=== PATIENT | male | born 1955 | race Caucasian/White ===

== ENCOUNTER 2019-04-24 06:47 | Inpatient (IN) ==
--- NOTE | 2019-04-10 10:05 | EKG Report ---
Test Performed on : 04/10/2019 09:46:11 AM Test Reason : PAT Blood Pressure : / mmHG Vent. Rate : 069 BPM Atrial Rate : 069 BPM P-R Int : 152 ms QRS Dur : 084 ms QT Int : 406 ms P-R-T Axes : 063 023 056 degrees QTc Int : 435 ms Normal sinus rhythm. Possible Left atrial enlargement Septal infarct , age undetermined Abnormal ECG When compared with ECG of 19-OCT-2017 21:32, Septal infarct is now present T wave amplitude has increased in Anterior leads Confirmed by Addy ROCHA, Jayden Mckinney ([id number]) on 04/11/2019 7:42:47 PM
[2019-04-10 10:40] LABS: HEMATOCRIT 38.9 % (42.0-52.0); HEMOGLOBIN 12.6 g/dL (14.0-18.0); MCH 30.1 PG (27-31); MCHC 32.4 g/dL (33-37); MCV 92.8 FL (81-99); MPV 9.4 FL (7.4-10.4); RBC 4.19 XMIL (4.7-6.1); RDW 12.5 % (11.5-14.5); WBC 7.56 X1000 (4.8-10.8)
[2019-04-10 10:53] LABS: AGAP 13; BUN 13 mg/dL (8-22); CALCIUM 9.5 mg/dL (8.8-10.2); CHLORIDE 97 mmol/L (98-107); COSMO 279; CREATININE 0.9 mg/dL (0.7-1.2); ESTIMATED GFR > 60; GLUCOSE 221 mg/dL (70-104); POTASSIUM 5.1 mmol/L (3.5-5.1); SODIUM 136 mmol/L (136-145); TCO2 26 mmol/L (25-35)
[2019-04-24] MEDS ORDERED: VANCOMYCIN 1 GM/NS 1 GM/250 ML IVPB IV ONE (07:15)
[2019-04-24] MEDS ORDERED: LR 1,000 ML ONE (07:17)
[2019-04-24] MEDS ORDERED: ROBINUL ONE ×2 (07:52→10:22)
[2019-04-24] MEDS ORDERED: XYLOCAINE-MPF 2% ONE ×2 (07:52→11:45)
[2019-04-24] MEDS ORDERED: ZOFRAN ONE (07:52)
[2019-04-24] MEDS ORDERED: DIPRIVAN 1% ONE (07:52)
[2019-04-24] MEDS ORDERED: DECADRON ONE (07:52)
[2019-04-24] MEDS ORDERED: QUELICIN (DOSE) ONE (07:56)
[2019-04-24] MEDS ORDERED: REGLAN ONE (08:34)
[2019-04-24] MEDS ORDERED: PEPCID ONE (08:34)
[2019-04-24] MEDS ORDERED: SENSORCAINE 0.5%-EPI 1:200,000 ONE (08:50)
[2019-04-24] MEDS ORDERED: HEPARIN ONE ×2 (08:51→08:52)
[2019-04-24] MEDS ORDERED: KEFZOL ONE (08:51)
[2019-04-24] MEDS ORDERED: NS 2,000 ML ONE (08:52)
[2019-04-24] MEDS ORDERED: VERSED ONE (08:53)
[2019-04-24] MEDS ORDERED: FENTANYL ONE (08:54)
[2019-04-24] MEDS ORDERED: NS 250 ML ONE (09:01)
[2019-04-24] MEDS ORDERED: SODIUM CHLORIDE 0.9% 10 ML ONE ×2 (09:23→09:34)
[2019-04-24] MEDS ORDERED: ZEMURON ONE (09:27)
[2019-04-24] MEDS ORDERED: HEPARIN (DOSE) ONE (09:29)
[2019-04-24] MEDS ORDERED: EPHEDRINE ONE (09:35)
[2019-04-24 09:59] LABS: URINE SOURCE CATH
[2019-04-24 10:03] LABS: BILIRUBIN URINE NEGATIVE (NEGATIVE); BLOOD URINE NEGATIVE (NEGATIVE); COLOR YELLOW; GLUCOSE URINE >1000 mg/dL (NEGATIVE); KETONE URINE TRACE mg/dL (NEGATIVE); LEUKOCYTES URINE NEGATIVE (NEGATIVE); NITRITE URINE NEGATIVE (NEGATIVE); PH URINE 6.5; PROTEIN URINE TRACE mg/dL (NEGATIVE); SP GRAVITY URINE 1.015; TURBIDITY URINE CLEAR (CLEAR); UROBILINOGEN URINE NORMAL (NORMAL)
[2019-04-24 10:06] LABS: UR EPITHELIAL CELLS <10 /HPF (<10); URINE BACTERIA NEGATIVE /HPF; URINE RBC <10 /HPF (<10); URINE WBC <10 /HPF (<10)
[2019-04-24] MEDS ORDERED: NEOSTIGMINE ONE (10:22)
[2019-04-24] MEDS ORDERED: NS 1,000 ML ONE (11:24)
[2019-04-24] MEDS ORDERED: NORCO-10 ONE (11:24)
[2019-04-24] MEDS ORDERED: HUMULIN N SUBQ SCH (12:01)
[2019-04-24] MEDS ORDERED: NS 1,000 ML IV SCH (12:01)
[2019-04-24] MEDS ORDERED: ZOFRAN IV PRN (12:01)
[2019-04-24] MEDS ORDERED: DILAUDID IV PRN (12:01)
[2019-04-24] MEDS ORDERED: FLU VACCINE IM ONE (12:24)
--- NOTE | 2019-04-24 12:26 | OPERATIVE NOTE ---
PROCEDURE DATE: 04/24/2019 PROCEDURE PERFORMED: 1. Left common femoral endarterectomy with patch angioplasty. 2. Open left leg arteriogram. SURGEON: Gamaliel Manriquez MD. ART GLASS SETTER: Jaye. PREOPERATIVE DIAGNOSIS: Left leg claudication. 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 DESCRIPTION OF PROCEDURE: Satisfactory general endotracheal anesthesia was achieved. The left leg was prepped and draped in a sterile fashion. We made a vertical incision, carried our incision through the subcutaneous tissue down to the left common femoral artery. We incised the inguinal ligament somewhat to get to distal external iliac where we could clamp it. There was significant plaque in the common femoral with a thrill indicative of significant stenosis or occlusion. We dissected out the superficial femoral surrounded with a vessel loop. The deep femoral as well as other branches off the common femoral and surrounded them with vessel loops or 2-0 silks. 7000 units of heparin were given. After that had circulated for over 7 minutes, we then clamped off the external iliac, the profunda, and the superficial femoral. We then incised the common femoral and extended it with the Beauchamp scissors through the significant calcific plaque in the common femoral. We then raised the plaque out of the artery and had to transected it with a Marvin scissors proximally and then used a [place] tool to dissect the intima and overlying plaque down to the bifurcation of the common femoral. That is where we transected the plaque. It was rather shallow at that point but we did tack the intima distally with 6-0 Prolene simple stitches x3. We removed all leaflets we could identify. We then obtained a 6 x 1 bovine patch which we had been soaking. We then sutured it to the femoral artery with a 6-0 Prolene running stitch. Upon completion, we allowed flow into the femoral artery. We had to add additional 6-0 Prolene stitches until satisfactory hemostasis was present along the course of the endarterectomy. We did have to place some Gel-Foam or Avitene patches to help achieve complete hemostasis along the suture line. We then used a needle to access the superficial femoral artery, passed a wire and then a 7-Swedish sheath. We shot an arteriogram of the left SFA, popliteal, tibial all the way to the ankle and no significant stenoses were present to necessitate any endovascular intervention. I placed a 5-0 Prolene [id number]-xo-txzim stitch at the puncture site and removed our sheath and closed the hole in the superficial femoral artery. We irrigated out the wound. Hemostasis was satisfactory. We closed the inguinal ligament with a 2-0 Polysorb gijiwv-er-tqmda stitch. We then closed the subcutaneous tissue in 2 layers of 2-0 Polysorb running and then closed the skin with a 4-0 Polysorb subcuticular stitch. Sterile OpSite dressing was applied. He tolerated it well and was sent to the recovery room in satisfactory condition. Estimated blood loss was 100 mL. cc: Gamaliel Manriquez MD
[2019-04-24] MEDS ORDERED: PNEUMOVAX 23 IM ONE (12:45)
[2019-04-24] MEDS: NEURONTIN PO SCH ×2 (14:34→20:23)
[2019-04-24] MEDS: NORCO-10 PO PRN ×3 (14:42→22:16)
[2019-04-24] MEDS: NICODERM PATCH TD SCH (16:31)
--- NOTE | 2019-04-24 20:02 | GENERAL SURGERY PROGRESS NOTE ---
DATE: 04/24/2019 SUBJECTIVE: He is postoperative left femoral endarterectomy. OBJECTIVE: There is no evidence of bleeding. His bandage is dry. He has a palpable posterior tibial pulse. ASSESSMENT AND PLAN: We will check his labs in the morning and discharge him tomorrow if all is well. cc: Gamaliel Manriquez MD
[2019-04-24] MEDS: PERIDEX MT SCH (20:23)
[2019-04-24] MEDS: VANCOMYCIN 1 GM/NS 1 GM/250 ML IVPB IV SCH (20:23)
[2019-04-24] MEDS: COREG PO SCH (20:23)
[2019-04-25] MEDS: NORCO-10 PO PRN ×3 (03:22→12:52)
[2019-04-25 06:21] LABS: BASO# 0.05 X1000 (0.0-0.2); BASO% 0.6 % (0.0-0.8); EOS# 0.35 X1000 (0.0-0.7); EOS% 4.3 % (0.0-10.0); HEMATOCRIT 33.4 % (42.0-52.0); HEMOGLOBIN 10.8 g/dL (14.0-18.0); LYMPH# 1.62 X1000 (1.2-3.4); LYMPH% 19.9 % (20.5-51.1); MCH 30.6 PG (27-31); MCHC 32.3 g/dL (33-37); MCV 94.6 FL (81-99); MONO# 0.73 X1000 (0.11-0.59); MONO% 8.9 % (1.7-9.3); MPV 8.8 FL (7.4-10.4); NEUT# 5.41 X1000 (1.4-6.5); NEUT% 66.3 % (42.2-75.2); PLT 385 X1000 (130-400); RBC 3.53 XMIL (4.7-6.1); RDW 12.8 % (11.5-14.5); WBC 8.16 X1000 (4.8-10.8)
[2019-04-25 06:43] LABS: AGAP 11; BUN 10 mg/dL (8-22); CALCIUM 8.2 mg/dL (8.8-10.2); CHLORIDE 98 mmol/L (98-107); COSMO 275; CREATININE 0.9 mg/dL (0.7-1.2); ESTIMATED GFR > 60; GLUCOSE 232 mg/dL (70-104); POTASSIUM 4.2 mmol/L (3.5-5.1); SODIUM 134 mmol/L (136-145); TCO2 25 mmol/L (25-35)
[2019-04-25] MEDS ORDERED: SYNTHROID PO SCH (07:00)
[2019-04-25] MEDS: VANCOMYCIN 1 GM/NS 1 GM/250 ML IVPB IV SCH (08:24)
[2019-04-25] MEDS: COREG PO SCH (08:25)
[2019-04-25] MEDS: PERIDEX MT SCH (08:25)
[2019-04-25] MEDS: NICODERM PATCH TD SCH (08:25)
[2019-04-25] MEDS: NEURONTIN PO SCH (08:25)
[2019-04-25] MEDS ORDERED: PROZAC PO SCH (09:00)
[2019-04-25] MEDS ORDERED: PRINIVIL PO SCH (09:00)
[2019-04-25 11:48] VITALS: BP 172/66
--- NOTE | 2019-04-25 20:11 | GENERAL SURGERY PROGRESS NOTE ---
DATE: 04/25/2019 SUBJECTIVE/OBJECTIVE: Mr. Rothman is doing well. His bandage is dry. He has a palpable posterior tibial pulse. His hemoglobin is 10.8, hematocrit 33. PLAN: Discharge. We will write him something for pain. We discussed his wound care and activity. He will continue his aspirin. He will return to see me in the office in a week. cc: Gamaliel Manriquez MD
[2019-04-25] MEDS ORDERED: LIPITOR PO SCH (21:00)
== END 2019-04-25 14:40 | disposition home or self-care (01) | DRG 254 ==
LOC: 4N 06:47 → OR 06:47 → OBSVTOIN 10:35
PROVIDERS: ADMIT Surgery; ATTEND Surgery